=== PATIENT | male | born 1975 | race African-American/Black ===

== ENCOUNTER 2018-08-31 00:28 | Observation (INO) | payer MEDICAID ==
[~2018-08-31] VITALS: Ht 190.5 cm; Wt 97.4 kg
--- NOTE | ~2018-08-31 | MORECARE ---
CASE MANAGEMENT DISCHARGE SUMMARY PATIENT: DESTINEE HEDRICK UNIT: [id number] ADM DATE: 08/31/18 AGE: 43 : 75 SEX: M ROOM/BED: D.2108 AUTHOR: RONALD PEDRAZA PHYSICIAN: REFERRING PHYSICIAN: JOSE F YAO MD DATE OF SERVICE: 08/31/18 Discharge Plan Patient Name: DESTINEE HEDRICK [facility] : 1975 Planned Disposition: Home Anticipated Discharge Date: 08/31/18 Discharge Date: Expected LOS: 1 Initial Reviewer: [id number] Initial Review Date: 08/31/2018 Generated: 08/31/18 6:06 pm Patient Name: DESTINEE HEDRICK Page [phone] at 1706 All edits/amendments must be made on the electronic document DICTATION DATE: 08/31/181704 ELECTRIC METER INSTALLER: NOY 08/31/181704 RPT#: [id number] DC DATE: STATUS: ADM IN [facility] [address] [place] [address] END OF REPORT
--- NOTE | ~2018-08-31 | DS ---
PATIENT:DESTINEE HEDRICK :75 MEDICAL RECORD: [id number] DISCHARGE SUMMARY ADMISSION DATE: 08/31/18 DISCHARGE DATE: 08/31/18 DISCHARGE DIAGNOSIS: Musculoskeletal chest pain. HOSPITAL COURSE: Mr. Hedrick presents with very atypical pain from a cardiac standpoint worse with deep inspiration. 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 Due to the pleuritic nature of the pain, we did get CT angio, this was normal. Serial troponins were normal. EKG was normal. Telemetry was normal. Discharged home with Percocet p.r.n. No cardiac followup necessary. TRANSINT:[id number] Voice Confirmation ID: [id number] DOCUMENT ID: [id number] JOSE F YAO MD at 1925 CC: [id number] DICTATION DATE: 08/31/18 1355 ELECTRO PLATER: 08/31/182106 DIS IN 08/31/18 [address] [address] [place] [address]
[2018-08-31] MEDS ORDERED: PRINIVIL20 MG PO (00:33)
[2018-08-31] MEDS ORDERED: HYDROCHLOROTHIA25 MG PO (00:33)
[2018-08-31 00:54] LABS: BASOPHILS 0.1 % (0-2); EOSINOPHILS 0.2 % (0-7); HEMATOCRIT 42.9 % (42.0-54.0); HEMOGLOBIN 15.4 g/dL (13.5-17.5); IMMATURE GRANULOCYTES 0.2 % (0-5); LYMPHOCYTES 17.6 % (15-50); MCH 30.7 pg (26.0-34.0); MCHC 35.9 g/dL (31.0-37.0); MCV 85.5 fL (80.0-100.0); MEAN PLATELET VOLUME 10.3 fL (7.4-10.4); MONOCYTES 7.5 % (2-11); NEUTROPHILS 74.4 % (40-80); RBC 5.02 10x6/uL (4.20-6.10); RDW 14.4 % (11.5-14.5); WBC 10.9 10x3/uL (4.8-10.8)
[2018-08-31 00:55] LABS: PLATELET COUNT 226 10x3/uL (130-400)
[2018-08-31 01:06] LABS: INR 1.03 (0.85-1.17); PROTIME 13.2 SECONDS (11.6-15.0)
[2018-08-31 01:07] LABS: ALBUMIN 4.1 g/dL (3.4-5.0); ALKALINE PHOSPHATASE 89 U/L (46-116); ALT (SGPT) 19 U/L (10-68); BILIRUBIN - TOTAL 0.65 mg/dL (0.2-1.3); CALC OSMOLALITY 279 mosm/kg (275-300); CALCIUM 9.2 mg/dL (8.5-10.1); CARBON DIOXIDE 26.5 mmol/L (21.0-32.0); CHLORIDE - SERUM 102 mmol/L (98-107); CREATININE - SERUM 1.7 mg/dL (0.6-1.3); GLUCOSE 108 mg/dL (74-106); POTASSIUM - SERUM 3.6 mmol/L (3.5-5.1); PROTEIN - SERUM 8.5 g/dL (6.4-8.2); SODIUM 139 mmol/L (136-145); UREA NITROGEN 14 mg/dL (7-18); eGFR NON AFRICAN AMERICAN 47 mL/min (90-120)
[2018-08-31 01:08] LABS: D-DIMER-QUANTITATIVE 0.92 ug/mLFEU (0.20-0.54)
[2018-08-31 01:18] LABS: CKMB 7.2 U/L (0.0-3.6); CREATINE KINASE 766 UL (21-232); MAGNESIUM - SERUM 1.9 mg/dL (1.8-2.4); TROPONIN-I 0.017 ng/mL (0.000-0.060)
[2018-08-31 03:00] VITALS: BP 179/90; BMI 26.8
[2018-08-31 05:40] VITALS: BP 179/90
[2018-08-31 08:24] LABS: CKMB 5.8 U/L (0.0-3.6); CREATINE KINASE 717 UL (21-232); TROPONIN-I 0.019 ng/mL (0.000-0.060)
[2018-08-31 08:48] VITALS: Ht 190.5 cm; Wt 97.4 kg
[2018-08-31 09:01] VITALS: BP 149/85
[2018-08-31 11:50] LABS: UDS - AMPHET POSITIVE QUAL (NEGATIVE); UDS - BARB NEGATIVE QUAL (NEGATIVE); UDS - BENZO NEGATIVE QUAL (NEGATIVE); UDS - COCAINE NEGATIVE QUAL (NEGATIVE); UDS - OPIATE POSITIVE QUAL (NEGATIVE); UDS - PCP NEGATIVE QUAL (NEGATIVE); UDS - THC POSITIVE QUAL (NEGATIVE)
[2018-08-31 12:18] VITALS: BP 127/65
[2018-08-31 13:57] LABS: CKMB 5.1 U/L (0.0-3.6); CREATINE KINASE 682 UL (21-232); TROPONIN-I 0.017 ng/mL (0.000-0.060)
[2018-08-31] MEDS ORDERED: OXYCODONE-APAP1 TAB PO (14:42)
== END 2018-08-31 17:39 | disposition home or self-care (01) ==
LOC: D.ER 00:28 → D.EDHOLD 01:26 → D.M2 01:26 → OBSVTIME 01:26 → D.M2 01:34
PROVIDERS: Family Medicine; Internal Medicine Interventional Cardiology
DX: R07.89 Other chest pain (principal); I10 Essential (primary) hypertension; R00.0 Tachycardia, unspecified; Z87.891 Personal history of nicotine dependence

== ENCOUNTER 2019-04-24 20:02 | Emergency (ER) | payer MEDICAID ==
[~2019-04-24] VITALS: Ht 190.5 cm; Wt 90.9 kg
[~2019-04-24 20:02] MED LIST: HYDROCHLOROTHIA25 MG PO; OXYCODONE-APAP1 TAB PO; PRINIVIL20 MG PO
[2019-04-24 20:05] VITALS: Ht 190.5 cm; Wt 90.9 kg
[2019-04-24] MEDS ORDERED: ZOLOFT25 MG PO (20:06)
[2019-04-24] MEDS ORDERED: PEPCID40 MG PO (20:57)
[2019-04-24] MEDS ORDERED: PREDNISONE20 MG PO (20:57)
[2019-04-24] MEDS ORDERED: NORVASC10 MG PO (20:58)
[2019-04-24 22:18] VITALS: BP 162/103
== END 2019-04-24 22:19 | disposition home or self-care (01) ==
LOC: D.ER 20:02
DX: T78.3XXA Angioneurotic edema, initial encounter (principal); I10 Essential (primary) hypertension

== ENCOUNTER 2019-11-30 12:20 | Inpatient (IN) | payer OTHER ==
[2019-11-30] VITALS (8 sets, daily range): BP systolic 132–169; BP diastolic 80–112; BMI 27.5
[~2019-11-30] VITALS: Ht 190.5 cm; Wt 79.0 kg
--- NOTE | ~2019-11-30 | HEMODYNAMI ---
PATIENT:DESTINEE HEDRICK MEDICAL RECORD: [id number] : 75 [id number] ADMISSION DATE: 12/01/19 Generatedon:12/03/201915:55 Patient name: DESTINEE HEDRICK Patient #: [id number] SSN: [id number] : 1975 Date of study: 12/03/2019 Page: Of Hemodynamic Procedure Report Patient Data Patient Demographics Procedure consent was obtained First Name: DESTINEE Gender: Male Last Name: RYLEY : 1975 Middle Initial: D Age: 44 year(s) Patient #: [id number] Race: Black SSN: [id number] Additional ID: [id number] Contact details Address: [address] [place] [address] State: [place] City: [facility] Zip code: [address] Admission Admission Data Admission Date: 12/01/2019 Admission Time: 15:09 Arrival Date: 12/01/2019 Arrival Time: 15:09 Admit Source: Emergency Insurance Payor: Private department health insurance Room #: D.2119 [facility] #: [id number] Height (in.): 74.8 BSA: 2.28 (m2) Height (cm.): 190 BMI: 27.7 (kg/m2) Weight (lbs.): 220.46 Weight (kg.): 100 Lab Results Lab Result Date: 12/03/2019 Lab Result Time: 0:00 Biochemistry Name Units Result Min Max BUN mg/dl 21 --(----)-* 7 18 Creatinine mg/dl 1.7 --(----)-* 0.6 1.3 eGFR ml/min 61.43499 *-(----)-- 90 120 NONAFRICAN CBC Name Units Result Min Max Hemoglobin g/dl 13.9 --(*---)-- 13.5 17.5 Procedure Procedure Types Cath Procedure Diagnostic Procedure [facility] w/Coronaries Sedation Charges Moderate Sedation up to 15 minutes Procedure Description Procedure Date Procedure Date: 12/03/2019 Procedure Start Time: 15:37 Procedure End Time: 15:48 Procedure Staff Name Function Martha Tigre RT Monitor Audrey Edwards RN Nurse Eleuterio Ren MD Performing Physician Crystal Rico RT Scrub Procedure Data Cath Procedure Fluoroscopy Diagnostic fluoroscopy Total fluoroscopy Time: 2.1 time: 2.1 min min Diagnostic fluoroscopy Total fluoroscopy dose: 479 dose: 479 mGy mGy Contrast Material Contrast Material Type Amount (ml) Isovue 300 66 Entry Location Entry Primary Successful Side Size Upsize Upsize Entry Closure Succes sful Closure Location (Fr) 1 (Fr) 2 (Fr) Remarks Device Remarks Femoral Right 5 Fr Exoseal artery Estimated blood loss: 5 ml Diagnostic catheters Device Type Used For End Catheter Placement MULTIPACK JL 4.0 5Fr Left Coronary catheter Angiography MULTIPACK 3DRC 5Fr Right Coronary catheter Angiography MULTIPACK Pigtail 5 Fr LV Angiography catheter Procedure Complications No complications Procedure Medications Medication Administration Route Dosage Oxygen etCO2 Nasal cannula 2 l/min Lidocaine 2% added to field 20 Heparin Flush Bag added to field 2 bags (1000units/500ml NS) 0.9% NaCl I.V. 100 ml/hr Versed I.V. 2 mg Fentanyl I.V. 50 mcg Versed I.V. 2 mg Fentanyl I.V. 50 mcg Hemodynamics Rest BSA: 2.28 (m2) HGB: 13.9 (g/dl) O2 Consumption: Estimated: 272.58 (ml/min) O2 Co nsumption indexed: Estimated:119.55 (ml/min/m) Heart Rate: 66 (bpm) Pressure Samples Time Site Value (mmHg) Purpose Heart Use Rate(bpm) 15:45 LV 111/17,39 Snapshot 71 Gradients Valve Time Site Site Mean SEP/DFP Peak To Heart Use 1 2 (mmHg) (sec/min) Peak Rate (mmHg) (bpm) Aortic 15:45 LV AO 70 Snapshots Pre Cath Intra NCS Post Cath Vital Signs Time Heart Resp SPO2 etCO2 NIBP (mmHg) Rhythm Pain Sedation Rate (ipm) (%) (mmHg) Status Level (bpm) 15:24:06 57 18 100 30.9 146/86(110) NSR 0 (11) 10(A) , No pain 15:29:03 62 13 100 32.4 134/87(98) NSR 0 (11) 10(A) , No pain 15:33:15 61 12 98 28.6 132/79(95) NSR 0 (11) 10(A) , No pain 15:38:06 65 14 97 33.1 130/74(95) NSR 0 (11) 9(A) , No pain 15:42:16 67 12 96 36.9 121/74(98) NSR 0 (11) 9(A) , No pain 15:46:24 70 14 95 38.4 129/75(96) NSR 0 (11) 10(A) , No pain Medications Time Medication Route Dose Verified Delivered Reason Notes Eff ectiveness by by 15:30:10 Oxygen etCO2 2 Eleuterio Buffie used for Nasal l/min Mikal Edwards RN procedure cannula 15:30:18 Lidocaine 2% added 20ml Eleuterio Eleuterio for local to vial Mikal Ren MD anesthetic field 15:30:23 Heparin Flush added 2 Eleuterio Eleuterio used for Bag to bags Mikal Ren MD procedure (1000units/500ml field NS) 15:30:32 0.9% NaCl I.V. 100 Eleuterio Buffie Per ml/hr Mikal Edwards RN physician 15:32:46 Versed I.V. 2 mg Eleuterio Buffie for Mikal Edwards RN sedation 15:32:52 Fentanyl I.V. 50 Eleuterio Buffie for mcg Mikal Edwards RN sedation 15:39:34 Versed I.V. 2 mg Eleuterio Buffie for Mikal Edwards RN sedation 15:39:41 Fentanyl I.V. 50 Eleuterio Buffie for mcg Mikal Edwards RN sedation Procedure Log Time Note 15:09:39 Diagnostic Cath Status : Urgent 15:10:15 Informed consent obtained and on chart 15:14:07 Arrival Date: 12/01/2019 3:09:00 PM 15:14:51 Insurance Payor : Private health insurance 15:14:53 Admit Source: Emergency department 15:14:58 Patient Height : 74.8 inches 15:15:06 Patient Weight : 220.46 lbs 15:16:47 Lab Result : eGFR NONAFRICAN 61.49096 ml/min 15:16:47 Lab Result : Hemoglobin 13.9 g/dl 15:16:47 Lab Result : BUN 21 mg/dl 15:16:47 Lab Result : Creatinine 1.7 mg/dl 15:16:59 Procedure Status Urgent Heart Cath (IP). 15:17:12 Audrey Edwards RN sent for patient. Start room use. 15:17:13 Time tracking: Regular hours (M-F 7:00 - 5:00) 15:17:17 Plan of Care:Hemodynamics will remain stable., Cardiac rhythm will remain stable., Comfort level will be maintained., Respiratory function will remain adequate., Patient/ family verbilizes understanding of procedure., Procedure tolerated without complication., Recovers from procedure without complications.. 15:18:50 Warm blankets applied, and emely hugger turned on for patient comfort. 15:18:50 Patient received from Med II to CCL 2 Alert and oriented. Tansferred to table in Supine position. 15:18:51 Correct patient and procedure confirmed by team. 15:18:52 ECG and BP/O2 sat monitors applied to patient. 15:22:56 Vital chart was started 15:22:57 Baseline sample Acquired. 15:23:00 Rhythm: sinus rhythm 15:23:01 Full Disclosure recording started 15:23:04 H&P Date Dictated: 12/03/2019 Within 30 days and on chart., H&P Addendum completed by physician on day of procedure. (MUST COMPLETE FOR ALL OUTPATIENTS). 15:23:06 Pre-op teaching completed and patient verbalized understanding. 15:23:06 Pre-procedure instructions explained to patient. 15:23:11 Family in patients room. 15:23:20 Patient NPO since Midnight. 15:23:22 Is the patient allergic to Iodine/contrast media? No. 15:23:23 Was the patient premedicated? Yes 15:23:24 Is patient on blood thinner?No 15:23:25 Patient diabetic? No. 15:23:28 Previous problem with sedation/anesthesia? No ? 15:23:31 Snore? Yes 15:23:32 Sleep apnea? No 15:23:33 Deviated septum? No 15:23:34 Opens mouth fully? Yes 15:23:35 Sticks out tongue? Yes 15:23:37 Airway obstruction? No ? 15:23:39 Dentures? No ? 15:23:42 Pre procedure: right dorsailis pedis pulse 2+ Normal; easily identifiable; not easily obliterated 15:23:44 Pre procedure: left dorsailis pedis pulse 2+ Normal; easily identifiable; not easily obliterated 15:23:46 Patient pain scale 0/10 ?. 15:23:52 IV patent on arrival in right wrist with 0.9% NaCl at [facility]. 15::54 Lab results completed and on chart. 15:24:55 Stress Test: no; abnormal INFERIOR ;LATERAL 15:30:10 Oxygen 2 l/min etCO2 Nasal cannula was administered by Audrey Edwards RN; used for procedure; Verbal order read back and verified. 15:30:18 Lidocaine 2% 20ml vial added to field was administered by Eleuterio Ren MD; for local anesthetic; Verbal order read back and verified. 15:30:23 Heparin Flush Bag (1000units/500ml NS) 2 bags added to field was administered by Eleuterio Ren MD; used for procedure; Verbal order read back and verified. 15:30:32 0.9% NaCl 100 ml/hr I.V. was administered by Audrey Edwards RN; Per physician; Verbal order read back and verified. 15:31:40 Risk of Mortality: 0.2 15::44 Risk of blood transfusion: 0.3 15:31:47 Risk of ALDO: 3.9 15:31:52 Right groin area was prepped with chlora-prep and draped in sterile fashion 15::54 Sharps counted by scrub and verified by R.N. 15::54 Alarms reviewed by R. N. 15:31:55 Physician arrived 15::56 Final Timeout: patient, procedure, and site verified with staff and physician. All members of the team are in agreement. 15::56 --------ALL STOP TIME OUT------ 15:31:59 Right groin site verified by team. 15:32:06 Fire Safety Assessment: A--An alcohol-based skin anteseptic being used preoperatively., C--Open oxygen or nitrous oxide is being used., D--An ESU, laser, or fiber-optic light is being used. 15:32:09 Physical assessment completed. ASA score P 2 - A patient with mild systemic disease as per Eleuterio Ren MD. 15:32:32 2) 60-89 Mildly reduced kidney function, and other findings (as for stage 1) point to kidney disease. 15:32:36 Maximum allowable contrast dose (3.7 X eGFR X 0.75)169 ml. 15:32:46 Versed 2 mg I.V. was administered by Audrey Edwards RN; for sedation; Verbal order read back and verified. 15:32:52 Fentanyl 50 mcg I.V. was administered by Audrey Edwards RN; for sedation; Verbal order read back and verified. 15:33:00 Sedation plan: IV Moderate Sedation Medication:Versed, Fentanyl 15:33:05 Use device set Femoral Dx 15:33:06 Bag Decanter (2002S) opened to sterile field. 15:33:06 ACIST Syringe (98563) opened to sterile field. 15:33:07 Medline Cath Pack ([id number]) opened to sterile field. 15:33:09 ACIST Manifold (93567) opened to sterile field. 15:33:09 ACIST Hand Control (17298) opened to sterile field. 15:33:10 Tegaderm 4 x 4 (1626W) opened to sterile field. 15:33:10 DIAGNOSTIC Multipack 5Fr catheter set (UW4290) opened to sterile field. 15:33:12 SHEATH 5FR [place] (ZQG750) opened to sterile field. 15:33:13 EMERALD Guide Wire (048-564) opened to sterile field. 15:35:08 Zero performed for pressure channel P1 15:37:24 Procedure started. 15:37:52 Local anesthetic to right femoral artery with Lidocaine 2% by Eleuterio Ren MD.INITIAL ACCESS ONLY 15:38:02 A 5 Fr sheath was inserted into the Right Femoral artery 15:38:42 A MULTIPACK JL 4.0 5Fr catheter was advanced over the wire and used for Left Coronary Angiography. 15:39:34 Versed 2 mg I.V. was administered by Audrey Edwards RN; for sedation; Verbal order read back and verified. 15:39:41 Fentanyl 50 mcg I.V. was administered by Audrey Edwards RN; for sedation; Verbal order read back and verified. 15:40:44 LCA angiography performed. 15:40:47 Injector settings: Ml/sec: 3, Volume: 6, 15:41:14 Catheter removed. 15:41:27 A MULTIPACK 3DRC 5Fr catheter was advanced over the wire and used for Right Coronary Angiography. 15:42:06 RCA angiography performed. 15:42:09 Injector settings: Ml/sec: 3, Volume: 6, 15:43:43 Catheter removed. 15:43:52 A MULTIPACK Pigtail 5 Fr catheter was advanced over the wire and used for LV Angiography. 15:45:04 LV hemodynamics recorded. 15:45:13 LV gram done using [place] 15:45:16 Injector settings: Ml/sec: 5, Volume: 15, 15:45:36 EF : 30 % 15:46:07 Catheter removed. 15:46:10 EXOSEAL 5Fr (EX500) opened to sterile field. 15:46:27 Sheath removed intact; hemostasis achieved with Exoseal to the Right Femoral artery. 15:46:32 Procedure ended.(Physican Out) 15:47:09 Fluoroscopy time 02.10 minutes. 15:47:14 Fluoroscopy dose: 479 mGy 15:47:14 Flurop Dose total: 479 15:47:19 Dose Area Product 62528 mGy/cm. 15:47:22 Contrast amount:Isovue 300 66ml. 15:47:25 Maximum allowable dose exceeded? No. 15:47:26 Sharps counted by scrub and verified by R.N. 15:47:28 Insertion/operative site no bleeding no hematoma. 15:47:31 Post-op/insertion site Right Femoral artery dressed using a 4 x 4 and Tegaderm. 15:47:33 Post Procedure Pulses reassessed and unchanged 15:47:38 Post procedure rhythm: unchanged. 15:47:40 Estimated blood loss: 5 ml 15:47:43 Patient needs reinforcement of post procedure teaching. 15:47:43 Post procedure instruction explained to patient.Patient verbalizes understanding. 15:47:55 Procedure type changed to Cath procedure, Diagnostic procedure, LHC, C w/Coronaries, Sedation Charges, Moderate Sedation up to 15 minutes 15:47:56 Procedure and supply charges have been captured, reviewed, submitted and are correct. 15:48:01 Procedure Complication : No complications 15:48:04 Vital chart was stopped 15:48:05 [facility] Findings: mild to moderate CAD (<70%) 15:48:06 See physician's report for complete and final results. 15:48:06 Operative report dictated upon procedure completion. 15:48:08 Report given to Med II. 15:48:19 Patient transfered to Med II with Stretcher. 15:48:20 Full Disclosure recording stopped 15:48:20 Procedure ended. 15:48:27 End room use (Document Last) 15:49:35 End room use (Document Last) 15:50:20 End room use (Document Last) Device Usage Item Name Manufacture Quantity Catalog Hospital Part Current Minimal L ot# / Number Charge Number Stock Stock Serial# Code ACIST Acist 1 75864 [id number] [id number] 184770 20 Syringe Medical (53423) Systems Inc Bag Microtek 1 893072 46150 151979 5 Decanter Medical Inc. () Medline Medline 1 [id number] 287981 88438 843170 5 Cath Pack ([id number]) ACIST Hand Acist 1 94192 808554 456565 060238 5 Control Medical (11727) Systems Inc ACIST Acist 1 73400 716338 210018 714190 5 Manifold Medical (38994) Systems Inc DIAGNOSTIC Cardinal 1 HY1333 134645 55453 982710 30 Multipack Health 5Fr catheter set (EH2872) Tegaderm 4 3M 1 1626W 298155 830340 286755 5 x 4 (1626W) SHEATH 5FR Terumo 1 JGK913 359580 157293 989499 5 [place] (OHF900) EMERALD Cardinal 1 502-455 349857 764366 444296 5 Guide Wire [facility] (502455) MULTIPACK Cardinal 1 141426 5 JL 4.0 5Fr Health catheter MULTIPACK Cardinal 1 896825 5 3DRC 5Fr Health catheter MULTIPACK Cardinal 1 705313 5 Pigtail 5 Health Fr catheter EXOSEAL 5Fr Cardinal 1 EX500 845528 663997 996007 10 (EX500) Health Signature Audit [place] Stage Time Signature Unsigned Intra-Procedure 12/03/2019 Martha Landeros 3:49:35 PM RT(R) Intra-Procedure 12/03/2019 Audrey Edwards RN 3:50:20 PM Intra-Procedure 12/03/2019 Eleuterio Ren MD 3:55:35 PM Signatures Monitor : Martha Landeros RT Signature : Date : Time : Nurse : Buffie Edwards RN Signature : Date : Time : Performing Physician : Signature : Eleuterio Ren MD Date : Time : [address] [place] [address]
[~2019-11-30 12:20] MED LIST changes: +NORVASC10 MG PO; +PEPCID40 MG PO; +PREDNISONE20 MG PO; +ZOLOFT25 MG PO
[2019-11-30 13:41] LABS: BASOPHILS 0 % (0-2); EOSINOPHILS 2.5 % (0-7); HEMATOCRIT 37.6 % (42.0-54.0); HEMOGLOBIN 12.9 g/dL (13.5-17.5); IMMATURE GRANULOCYTES 0.3 % (0-5); LYMPHOCYTES 16.8 % (15-50); MCH 29.2 pg (26.0-34.0); MCHC 34.3 g/dL (31.0-37.0); MCV 85.1 fL (80.0-100.0); MEAN PLATELET VOLUME 9.2 fL (7.4-10.4); MONOCYTES 12.5 % (2-11); NEUTROPHILS 67.9 % (40-80); PLATELET COUNT 190 10x3/uL (130-400); RBC 4.42 10x6/uL (4.20-6.10); RDW 14.6 % (11.5-14.5)
[2019-11-30 13:49] LABS: CALC OSMOLALITY 271 mosm/kg (275-300); CALCIUM 8.9 mg/dL (8.5-10.1); CARBON DIOXIDE 25.7 mmol/L (21.0-32.0); CHLORIDE - SERUM 104 mmol/L (98-107); CREATININE - SERUM 1.5 mg/dL (0.6-1.3); GLUCOSE 83 mg/dL (74-106); POTASSIUM - SERUM 3.8 mmol/L (3.5-5.1); SODIUM 136 mmol/L (136-145); UREA NITROGEN 15 mg/dL (7-18); eGFR NON AFRICAN AMERICAN 54 mL/min (90-120)
[2019-11-30 13:55] LABS: APTT 28.7 SECONDS (22.8-39.4); INR 1.04 (0.85-1.17); PROTIME 13.5 SECONDS (11.6-15.0)
[2019-11-30 14:09] LABS: ALBUMIN 3.4 g/dL (3.4-5.0); ALKALINE PHOSPHATASE 88 U/L (30-120); ALT (SGPT) 29 U/L (10-68); BILIRUBIN - TOTAL 0.56 mg/dL (0.2-1.3); CKMB 4.3 U/L (0.0-3.6); CREATINE KINASE 886 UL (21-232); MAGNESIUM - SERUM 2.2 mg/dL (1.8-2.4); PROTEIN - SERUM 7.3 g/dL (6.4-8.2); TROPONIN-I < 0.017 ng/mL (0.000-0.060)
[2019-11-30] MEDS ORDERED: LISINOPRIL20 MG PO (15:10)
[2019-11-30] MEDS ORDERED: SMZ-TMP DS TABL1 TAB PO (15:10)
[2019-11-30] MEDS ORDERED: NORVASC5 MG PO (15:10)
--- NOTE | 2019-11-30 15:27 | NUR ---
CULTURE SWAB OF UMBILICUS DRAINAGE SENT TO LAB
--- NOTE | 2019-11-30 17:18 | NUR ---
RECEIVED PT TO ROOM 2118 VIA WHEELCHAIR. PT A/O X4, RESP EVEN AND NONLAOBORED ON RA. LT AC IV SL. ORIENTED PT TO ROOM AND CALL LIGHT, WILL ASSESS PT AND START PLAN OF CARE.
[2019-11-30 19:40] LABS: CKMB 3.1 U/L (0.0-3.6); CREATINE KINASE 746 UL (21-232); TROPONIN-I < 0.017 ng/mL (0.000-0.060)
--- NOTE | 2019-11-30 20:06 | NUR ---
INITIAL ROUNDS COMPLETED AT 1915 HRS. PT RESTING WITH EYES CLOSED. RESP EVEN AND REGULAR. ASSESSMENT COMPLETED AT 1954HRS. SR PER CM HR 77. ALERT AND ORIENTED TO PERSON,PLACE AND TIME. BLANCO. IV TO LAC SL. LUNGS ESENTIALLY CTA. SWELLING NOTED TO UMBILICUS AREA WITH YELLOW EXUDATE NOTED TO CENTER OF UMBILICUS. DENIES NAY DISCOMFORT. NON-SLID SOCKS PLACED ON PT'S FEET AT THAT TIME. SR UP X1, CALL LIGHT WITHIN REACH.
--- NOTE | 2019-11-30 21:39 | NUR ---
TYLENOL 650MG PO GIVEN FOR C/O GENERALIZED DISCOMFORT.
--- NOTE | 2019-11-30 23:55 | NUR ---
PT RESTING WITH EYES CLOSED. RESP EVEN AND REGULAR. SR UP X2, CALL LIGHT WITHIN REACH.
[2019-12-01] VITALS: BP 139/80
--- NOTE | 2019-12-01 01:47 | NUR ---
[facility] PAGED REGARDING PT'S S/O BACK AND ABD PAIN THAT TYLENOL SOESN'T TOUCH.
--- NOTE | 2019-12-01 02:05 | NUR ---
Shala SILVA APN RETURNS PAGE. INFORMED OF PT'S DIAGNOSIS, C/O BACKA ND ABD PAIN AND TAHT TYLENOL WAS NOT CONTROLLING PAIN. DILAUDID 0.5MG IV Q6HRS ORDERS. DILAUDID 0.5MG SIVO GIVEN TO LAC FOR C/O BACK PAIN 06/25. PT INFORMED HE MAY HAVE IT EVERY 6 HRS. STATED UNDERSTANDING. SR UP X2, CALL LIGHT WITHIN REACH.
[2019-12-01 02:15] LABS: CKMB 1.6 U/L (0.0-3.6); CREATINE KINASE 645 UL (21-232); TROPONIN-I < 0.017 ng/mL (0.000-0.060)
--- NOTE | 2019-12-01 03:48 | NUR ---
PT STATES DILAUDID HELPED CONTROL HIS PAIN. SR UP X2, CALL LIGHT WITHIN REACH.
[2019-12-01 04:00] VITALS: BP 158/94
--- NOTE | 2019-12-01 04:34 | NUR ---
PT RESTING WITH EYES CLOSED. RESP EVEN AND REGULAR. SR UP X2, CALL LIGHT WITHIN REACH.
--- NOTE | 2019-12-01 06:40 | NUR ---
VSS THROUGHOUT NIGHT. SR PER CM. PT STATES DILAUDID HELPING PAIN. NEEDS MET; WILL CONTINUE TO MONITOR.
[2019-12-01 08:03] VITALS: BP 143/98
--- NOTE | 2019-12-01 10:07 | NUR ---
SPOKE TO CESAR ABOUT INCREASING PAIN MED. IV RESTARTED TO LEFT FA WITH 20 GAUGE CATH X 1 STICK AND FLUSHED WITH NS. LINE IS PATENT.
[2019-12-01 12:22] VITALS: BP 118/63
--- NOTE | 2019-12-01 14:51 | NUR ---
ECHO COMPLETED AT BS.
[2019-12-01 15:55] VITALS: BP 133/79
[2019-12-01 16:10] LABS: BASOPHILS 0 % (0-2); HEMATOCRIT 37.8 % (42.0-54.0); HEMOGLOBIN 13.3 g/dL (13.5-17.5); LYMPHOCYTES 15.6 % (15-50); MCH 29.3 pg (26.0-34.0); MCHC 35.2 g/dL (31.0-37.0); MCV 83.3 fL (80.0-100.0); MEAN PLATELET VOLUME 9.4 fL (7.4-10.4); NEUTROPHILS 68.4 % (40-80); PLATELET COUNT 175 10x3/uL (130-400); RBC 4.54 10x6/uL (4.20-6.10); RDW 14.5 % (11.5-14.5)
[2019-12-01 16:33] LABS: ANION GAP 7.8 mmol/L (8-16); CALCIUM 8.3 mg/dL (8.5-10.1); CARBON DIOXIDE 30.5 mmol/L (21.0-32.0); CREATININE - SERUM 1.8 mg/dL (0.6-1.3); MAGNESIUM - SERUM 2.1 mg/dL (1.8-2.4); POTASSIUM - SERUM 4.3 mmol/L (3.5-5.1)
[2019-12-01 17:49] LABS: UDS - AMPHET POSITIVE QUAL (NEGATIVE); UDS - BARB NEGATIVE QUAL (NEGATIVE); UDS - BENZO NEGATIVE QUAL (NEGATIVE); UDS - COCAINE NEGATIVE QUAL (NEGATIVE); UDS - OPIATE POSITIVE QUAL (NEGATIVE); UDS - PCP NEGATIVE QUAL (NEGATIVE); UDS - THC POSITIVE QUAL (NEGATIVE)
[2019-12-01 17:58] LABS: APPEARANCE CLEAR (CLEAR); BILIRUBIN NEGATIVE (NEGATIVE); COLOR YELLOW (YELLOW); GLUCOSE NEGATIVE (NEGATIVE); KETONE NEGATIVE (NEGATIVE); NITRITE NEGATIVE (NEGATIVE); PROTEIN NEGATIVE (NEGATIVE); SPECIFIC GRAVITY 1.015 (1.005-1.020); UROBILINOGEN NORMAL (NORMAL)
[2019-12-01 20:00] VITALS: BP 128/66
--- NOTE | 2019-12-01 20:25 | NUR ---
INTIAL ROUNDS COMPETED AT 1914 HRS. PT RESTING WITH EYES CLOSED. RESP EVEN AND REGULAR. ASSESSEMNT COMPLETED AT HRS. VSS. SR PER CM HR 79. ALERT AND ORIENTED TO PERSON, PLACE AND TIME. BLANCO. IV TO LFA SL. SWELLING NOTED AROUND UMBILICUS. PT STATES HE HAS A PRESSURE INCHEST. NITRO 0.4MG SL GIVEN AT 193 HRS. REEVALED AT 1954 HRS AND PT STATED PRESSURE DECREASED BUT STILL HAS PAIN 9/10 TO BACK. DILAUDID 0.5MG SIVP GIVEN AT 2008 HRS. SR UP X2, CALL LIGHT WITHIN REACH. DISCUSSED CARDIOLYTE STRESS TEST. DISCUSSED HOW AMPHETAMINES CAN DAMAGE HIS HEART. PT STATED UNDERSTANDING.
--- NOTE | 2019-12-01 21:42 | NUR ---
PT STATES PAIN NOW 01/23. IVAB INITIATED TO LFA. CALL LIGHT WITHIN REACH.
--- NOTE | 2019-12-01 22:59 | NUR ---
PT UP TO BR. NO DISTRESS NOTED.
[2019-12-02] VITALS: BP 113/71
--- NOTE | 2019-12-02 00:46 | NUR ---
PT RESTING WITH EYES CLOSED ON R SIDE. RESP DEEP, EVEN AND REGULAR. SR UP X1,CALL LIGHT WITHIN REACH.
--- NOTE | 2019-12-02 02:05 | NUR ---
PT HAS C/O SEVERE CHEST, BACK AND ABD PAIN 10/10. CHEST TENDER TO TOUCH. BP 127/75. HR 82 SR. NITOR 0.4MG SL GIVEN. DILAUDID 0.5MG SIVP GIVEN. WILL CONTINUE TO MONITOR.
[2019-12-02 04:00] VITALS: BP 120/68
--- NOTE | 2019-12-02 04:26 | NUR ---
VSS. SR PER CM HR 80. PT RESTING WITH EYES CLOSED. RESP EVEN AND REGULAR. SR UP X2, CALL LIGHT WITHIN REACH.
--- NOTE | 2019-12-02 06:15 | NUR ---
VSS THROUGHOUT NGIHT. DILAUDID SIVP DIMINISHED HIS PAIN. PT CURRENTLY RESTING WITH EYES CLOSED. RESP EVEN AND REGULAR. NPO FOR AM CARDIOLYTE STRESS TEST. NEEDS MET; WILL CONTINUE TO MONITOR.
[2019-12-02 06:51] LABS: HEMATOCRIT 38.9 % (42.0-54.0); HEMOGLOBIN 13.5 g/dL (13.5-17.5); MCH 28.8 pg (26.0-34.0); MCHC 34.7 g/dL (31.0-37.0); MCV 83.1 fL (80.0-100.0); MEAN PLATELET VOLUME 9.4 fL (7.4-10.4); PLATELET COUNT 173 10x3/uL (130-400); RBC 4.68 10x6/uL (4.20-6.10); RDW 14.7 % (11.5-14.5); WBC 2.5 10x3/uL (4.8-10.8)
[2019-12-02 07:10] LABS: ANION GAP 11.5 mmol/L (8-16); CALCIUM 8.1 mg/dL (8.5-10.1); CARBON DIOXIDE 25.8 mmol/L (21.0-32.0); CREATININE - SERUM 1.7 mg/dL (0.6-1.3); MAGNESIUM - SERUM 2.1 mg/dL (1.8-2.4); POTASSIUM - SERUM 4.3 mmol/L (3.5-5.1)
[2019-12-02 08:07] VITALS: BP 125/71
--- NOTE | 2019-12-02 08:50 | NUR ---
LEFT FOR STRESS TEST VIA WHEELCHAIR.
[2019-12-02 09:08] LABS: CRENATED CELLS OCC; LYMPHOCYTES 25 % (15-50); MONOCYTES 8 % (2-11); NEUTROPHILS 62 % (40-80); PLATELET ESTIMATE NORMAL; ROULEAUX OCC
[2019-12-02 13:53] LABS: CHOL - HDL RATIO 2.2 ratio (2.3-4.9); LDL-HDL RATIO 1.1 ratio (1.5-3.5)
--- NOTE | 2019-12-02 15:05 | NUR ---
ALERT AND ORIENTED X4. SHOWER AND LINEN CHANGE COMPLETE. CONSENTS FOR DIRECTOR TRAFFIC AND PLANNING SIGNED ON CHART. DENIES ANY NEEDS AT THIS TIME. CONTINUE PLAN OF CARE AND SAFETY PRECAUTIONS.
[2019-12-02 16:13] VITALS: BP 125/76
--- NOTE | 2019-12-02 19:42 | NUR ---
RECEIVED BEDSIDE REPORT. PATIENT IS ALERT AND ORIENTED, RESTING COMFORTABLY IN BED. PATIENT ROOM SMELT LIKE CIGARETTE SMOKE. SISTER AT BEDSIDE. RESPIRATIONS ARE EVEN AND UNLABORED. NO S/S OF DISTRESS. NO C/O PAIN. CALL LIGHT WITHIN REACH. WILL CPOC.
[2019-12-02 20:00] VITALS: BP 121/81
[2019-12-03] VITALS: BP 134/73
--- NOTE | 2019-12-03 00:18 | NUR ---
PATIENT RESTING COMFORTABLY IN BED. RESPIRATIONS ARE EVEN AND UNLABORED. NO S/S OF DISTRESS. NO C/O PAIN CALL LIGHT WITHIN REACH. WILL CPOC.
[2019-12-03 04:00] VITALS: BP 120/81
--- NOTE | 2019-12-03 04:03 | NUR ---
PATIET IV INFILTRATED. NEW IV OBTAINED IN RIGHT FOREARM.
[2019-12-03 06:53] LABS: HEMOGLOBIN 13.9 g/dL (13.5-17.5); MCH 28.6 pg (26.0-34.0); MCHC 34.8 g/dL (31.0-37.0); MCV 82.3 fL (80.0-100.0); MEAN PLATELET VOLUME 9.4 fL (7.4-10.4); PLATELET COUNT 161 10x3/uL (130-400); RBC 4.86 10x6/uL (4.20-6.10); RDW 14.3 % (11.5-14.5)
[2019-12-03 07:01] LABS: ANION GAP 10.7 mmol/L (8-16); CALCIUM 8.2 mg/dL (8.5-10.1); CARBON DIOXIDE 26.7 mmol/L (21.0-32.0); CREATININE - SERUM 1.6 mg/dL (0.6-1.3); MAGNESIUM - SERUM 2.3 mg/dL (1.8-2.4); POTASSIUM - SERUM 4.4 mmol/L (3.5-5.1)
--- NOTE | 2019-12-03 07:20 | NUR ---
RECIEVE REPORT. LAYING IN BED. REPORTS PAIN 06/25. CONTINUE PAIN MANAGEMENT. WAITING TO GO TO BANKING ANALYST. CONTINUE PLAN OF CARE AND SAFETY PRECAUTIONS.
[2019-12-03 09:08] VITALS: BP 132/75
[2019-12-03 09:15] LABS: EOSINOPHILS 6 % (0-7); LYMPHOCYTES 45 % (15-50); MONOCYTES 15 % (2-11); NEUTROPHILS 31 % (40-80); PLATELET ESTIMATE NORMAL
[2019-12-03 09:16] LABS: ANISOCYTOSIS OCC
[2019-12-03 12:44] VITALS: BP 118/76
[2019-12-03 16:00] VITALS: BP 116/80
--- NOTE | 2019-12-03 16:14 | NUR ---
ARRIVE TO ROOM VIA BED FROM BACK OFFICE MEDICAL ASSISTANT. SEDATED. AROUSES TO STIMULI. PULSE PALPABLE BILATERALLY. BP-112/69, HR-59 SINUS ENIO, O2-95% RA. NO SIGNS OF DISTRESS. RT GROIN DRESSING CLEAN DRY INTACT. FREE FROM HEMATOMA. FREE FROM BLEEDING. CONTINUE PLAN OF CARE AND SAFETY PRECAUTIONS.
--- NOTE | 2019-12-03 19:36 | NUR ---
RECEIVED BEDSIDE REPORT. PATIENT IS RESTING COMFORTABLY IN BED. RESPIRATIONS ARE EVEN AND UNLABORED. NO S/S OF DISTRESS. NO C/O PAIN. CALL LIGHT WITHIN REACH. NEEDS MET. WILL CPOC.
[2019-12-03 20:00] VITALS: BP 111/59
[2019-12-04] VITALS: BP 100/52
--- NOTE | 2019-12-04 00:26 | NUR ---
PATIENT RESTING COMFORTABLY IN BED. RESPIRATIONS ARE EVEN AND UNLABORED. NO S/S OF DISTRESS. NO C/O PAIN. CALL LIGHT WITHIN REACH. WILL CPOC.
[2019-12-04 04:00] VITALS: BP 103/55
[2019-12-04 07:14] LABS: BASOPHILS 0.5 % (0-2); EOSINOPHILS 4.2 % (0-7); HEMATOCRIT 39.5 % (42.0-54.0); HEMOGLOBIN 13.6 g/dL (13.5-17.5); LYMPHOCYTES 31.6 % (15-50); MCH 28.9 pg (26.0-34.0); MCHC 34.4 g/dL (31.0-37.0); MCV 83.9 fL (80.0-100.0); MEAN PLATELET VOLUME 9.6 fL (7.4-10.4); MONOCYTES 4.2 % (2-11); NEUTROPHILS 59.5 % (40-80); PLATELET COUNT 165 10x3/uL (130-400); RBC 4.71 10x6/uL (4.20-6.10); RDW 14.7 % (11.5-14.5); WBC 2.2 10x3/uL (4.8-10.8)
[2019-12-04 07:29] LABS: ANION GAP 12.4 mmol/L (8-16); CALCIUM 8.2 mg/dL (8.5-10.1); CREATININE - SERUM 1.5 mg/dL (0.6-1.3); MAGNESIUM - SERUM 2.2 mg/dL (1.8-2.4); POTASSIUM - SERUM 4.4 mmol/L (3.5-5.1)
[2019-12-04 09:17] VITALS: BP 114/68
[2019-12-04 14:14] VITALS: BP 138/78
[2019-12-04 17:01] VITALS: BP 118/62
[2019-12-04 20:00] VITALS: BP 132/75
--- NOTE | 2019-12-04 20:31 | NUR ---
RECEIVED BEDSIDE REPORT. PATIENT IS RESTING COMFORTABLY IN BED. RESPIRATIONS ARE EVEN AND UNLABORED. NO S/S OF DISTRESS. NO C/O PAIN. CALL LIGHT WITHIN REACH. WILL CPOC.
[2019-12-05] VITALS: BP 121/70
[2019-12-05 04:00] VITALS: BP 125/70
[2019-12-05 06:37] LABS: BASOPHILS 0.2 % (0-2); EOSINOPHILS 0.6 % (0-7); HEMATOCRIT 39.6 % (42.0-54.0); HEMOGLOBIN 13.6 g/dL (13.5-17.5); IMMATURE GRANULOCYTES 0.6 % (0-5); LYMPHOCYTES 9.1 % (15-50); MCH 28.6 pg (26.0-34.0); MCHC 34.3 g/dL (31.0-37.0); MCV 83.4 fL (80.0-100.0); MEAN PLATELET VOLUME 9.5 fL (7.4-10.4); NEUTROPHILS 86.5 % (40-80); PLATELET COUNT 156 10x3/uL (130-400); RBC 4.75 10x6/uL (4.20-6.10); RDW 14.6 % (11.5-14.5); WBC 13.9 10x3/uL (4.8-10.8)
[2019-12-05 07:00] LABS: ANION GAP 13.1 mmol/L (8-16); CALCIUM 8.3 mg/dL (8.5-10.1); CARBON DIOXIDE 24.2 mmol/L (21.0-32.0); CREATININE - SERUM 1.4 mg/dL (0.6-1.3); POTASSIUM - SERUM 4.3 mmol/L (3.5-5.1)
[2019-12-05 09:57] VITALS: BP 130/79
[2019-12-05 10:10] LABS: HEPATITIS C ANTIBODY <0.1 S/CO RAT (0.0-0.9)
[2019-12-05 12:47] VITALS: BP 100/61
--- NOTE | 2019-12-05 14:01 | NUR ---
RESTS IN BED WITH EYES CLOSED. NO S/S PAIN NOTED.
[2019-12-05 16:00] VITALS: BP 126/83
--- NOTE | 2019-12-05 19:27 | NUR ---
RECEIVED BEDSIDE REPORT. PATIENT IS ALERT AND ORIENTED, RESTING COMFORTABLY IN BED. RESPIRATIONS ARE EVEN AND UNLABORED. NO S/S OF DISTRESS. NO C/O PAIN. NEEDS MET. CALL LIGHT WITHIN REACH. WILL CPOC.
[2019-12-05 21:00] VITALS: BP 128/78
--- NOTE | 2019-12-06 00:07 | NUR ---
PATIENT RESTING COMFORTABLY IN BED. RESPIRATIONS ARE EVEN AND UNLABORED. NO S/S OF DISTRESS. CALLLIGHT WITHIN REACH. WILL CPOC.
[2019-12-06 01:18] VITALS: BP 101/66
[2019-12-06 04:42] VITALS: BP 112/72
--- NOTE | 2019-12-06 04:58 | NUR ---
ZAC MARSHALL INFORMED RN THAT PATIENT WANTS THE NUMBER TO THE ROOM SERVICE CLERK WAS I GAVE HER. ZAC MARSHALL EXPLAINED THAT PATIENT WANTED THE NUMBER SO THAT HE COULD CALL ROOM SERVICE CLERK BECAUSE I WAS NOT GIVING HIM IS MEDICATIONS. PATIENT HAS BEEN SLEEPING SINCE I HAD HUNG HIS ANTIBIOTIC. I WENT TO ROOM IMMEDIATELY AFTER CONVERSATION WITH ZAC MARSHALL. PATIENT HAD HIS HEAD COVERED WITH HIS BLANKET. ASKED PATIENT WHAT MEDICATION HE WANTED. HE STATED HIS PAIN MEDICATION. PATIENT GIVEN HIS DILAUDID, PROTONIX AND HIS ANTIBIOTIC. EXPLAINED TO PATIENT THAT HIS PAIN MEDICATION WAS PRN AND THAT HE NEEDED TO ASKE FOR IT. PATIENT IGNORED ME, ROLLED OVER AND STATED "WELL I NEEDED SOMETHING TO SLEEP!" NOTIFIED ROOM SERVICE CLERK THAT THE PATIENT WAS REQUESTING TO SPEAK WITH HER.
[2019-12-06 05:15] LABS: BASOPHILS 0.4 % (0-2); EOSINOPHILS 1.1 % (0-7); HEMATOCRIT 41.1 % (42.0-54.0); HEMOGLOBIN 14.1 g/dL (13.5-17.5); IMMATURE GRANULOCYTES 0.4 % (0-5); LYMPHOCYTES 16.6 % (15-50); MCH 28.9 pg (26.0-34.0); MCHC 34.3 g/dL (31.0-37.0); MCV 84.2 fL (80.0-100.0); MEAN PLATELET VOLUME 9.7 fL (7.4-10.4); MONOCYTES 4.3 % (2-11); NEUTROPHILS 77.2 % (40-80); PLATELET COUNT 169 10x3/uL (130-400); RBC 4.88 10x6/uL (4.20-6.10); RDW 14.8 % (11.5-14.5); WBC 15.8 10x3/uL (4.8-10.8)
[2019-12-06 05:43] LABS: ANION GAP 10.3 mmol/L (8-16); CALCIUM 8.5 mg/dL (8.5-10.1); CARBON DIOXIDE 29.2 mmol/L (21.0-32.0); CREATININE - SERUM 1.6 mg/dL (0.6-1.3); MAGNESIUM - SERUM 2.2 mg/dL (1.8-2.4); POTASSIUM - SERUM 4.5 mmol/L (3.5-5.1)
[2019-12-06 08:00] VITALS: BP 105/62
[2019-12-06 12:00] VITALS: BP 102/56
[2019-12-06 14:10] VITALS: Ht 190.5 cm; Wt 79.0 kg
[2019-12-06 16:00] VITALS: BP 97/54
--- NOTE | 2019-12-06 19:11 | NUR ---
RECEIVED UP IN BED WITH EYES OPEN AND TV ON. ALERT AND ORIENTED X4. UP AD ONEAL. IV TO RT FA SL. TELEMETRY IN PLACE. DENIES ANY PAIN OR NEEDS. RECEIVED BEDSIDE SHIFT REPORT. NO REDNESS OR SWELLING TO ABD.
[2019-12-06 20:30] VITALS: BP 128/71
[2019-12-07 00:30] VITALS: BP 115/66
[2019-12-07 04:30] VITALS: BP 106/64
[2019-12-07 05:13] LABS: BASOPHILS 0.5 % (0-2); EOSINOPHILS 1.2 % (0-7); HEMATOCRIT 41.1 % (42.0-54.0); HEMOGLOBIN 13.9 g/dL (13.5-17.5); IMMATURE GRANULOCYTES 0.6 % (0-5); LYMPHOCYTES 31.8 % (15-50); MCH 28.4 pg (26.0-34.0); MCHC 33.8 g/dL (31.0-37.0); MEAN PLATELET VOLUME 9.6 fL (7.4-10.4); MONOCYTES 7.4 % (2-11); NEUTROPHILS 58.5 % (40-80); PLATELET COUNT 177 10x3/uL (130-400); RBC 4.89 10x6/uL (4.20-6.10); RDW 14.6 % (11.5-14.5)
[2019-12-07 05:15] LABS: WBC 11.3 10x3/uL (4.8-10.8)
[2019-12-07 05:23] LABS: ANION GAP 5.8 mmol/L (8-16); CALCIUM 8.4 mg/dL (8.5-10.1); CARBON DIOXIDE 31.5 mmol/L (21.0-32.0); CREATININE - SERUM 1.5 mg/dL (0.6-1.3); MAGNESIUM - SERUM 2.3 mg/dL (1.8-2.4); POTASSIUM - SERUM 4.3 mmol/L (3.5-5.1)
[2019-12-07 08:00] VITALS: BP 103/61
--- NOTE | 2019-12-07 10:26 | MORECARE ---
CASE MANAGEMENT DISCHARGE SUMMARY PATIENT: DESTINEE HEDRICK UNIT: [id number] ADM DATE: 12/01/19 AGE: 44 : 75 SEX: M ROOM/BED: D.2119 AUTHOR: RONALD PEDRAZA PHYSICIAN: REFERRING PHYSICIAN: RAMIN JUNIOR MD DATE OF SERVICE: 12/07/19 Discharge Plan Patient Name: DESTINEE HEDRICK Facility: [facility]:[place] : 1975 Planned Disposition: Home Anticipated Discharge Date: Discharge Date: Expected LOS: Initial Reviewer: [email or web address] Initial Review Date: 12/07/2019 Generated: 12/07/19 11:26 am Comments DCP- Discharge Planning Updated by [email or web address]: Jyoti William on 12/07/19 9:[address] Patient Name: DESTINEE HEDRICK Admission Status: ER Accout number: [id number] Admission Date: 12-01-2019 : 1975 Admission Diagnosis: Attending: RAMNI JUNIOR Current LOS: 6 Anticipated DC Date: Planned Disposition: Home Primary Insurance: [employer] MEDICAID Discharge Planning Comments: CM MET WITH PATIENT TO DISCUSS DC PLANNING/NEEDS AFTER OBTAINING VERBAL CONSENT. PLANS TO DC TO HOME. DENIES NEEDS FOR EQUIPMENT, HOME HEALTH OR REHAB. CM TO FOLLOW AND ASSIST NEEDED. Garage Supervisor: Jyoti William DCPIA - Discharge Planning Initial Assessment Updated by [email or web address]: Jyoti William on 12/07/19 10:22 am * Is the patient Alert and Oriented? Yes * PCP [facility] * Preadmission Environment Home Alone * ADLs Independent * Additional services required to return to the preadmission environment? No * Can the patient safely return to the preadmission environment? Yes * Has this patient been hospitalized within the prior 30 days at any hospital? No Patient Name: DESTINEE HEDRICK Page [id number] at 1026 All edits/amendments must be made on the electronic document DICTATION DATE: 12/07/19 1026 RUBBER BELT SPLICER: NOY 12/07/19 1026 RPT#: [id number] DC DATE: STATUS: ADM IN [place] [id number] [place] [address] END OF REPORT
[2019-12-07] MEDS ORDERED: LISINOPRIL20 MG PO (14:24)
[2019-12-07] MEDS ORDERED: NORVASC5 MG PO (14:24)
--- NOTE | 2019-12-07 16:09 | NUR ---
IV AND TELEMETRY DCD. DC PLANS GIVEN. UNDERSTANDING VOICED.
--- NOTE | 2019-12-08 11:42 | MORECARE ---
CASE MANAGEMENT DISCHARGE SUMMARY PATIENT: DESTINEE HEDRICK UNIT: [id number] ADM DATE: 12/01/19 AGE: 44 : 75 SEX: M ROOM/BED: D.2119 AUTHOR: RONALD PEDRAZA PHYSICIAN: REFERRING PHYSICIAN: RAMIN JUNIOR MD DATE OF SERVICE: 12/08/19 Discharge Plan Patient Name: DESTINEE HEDRICK Facility: [facility]:[place] : 1975 Planned Disposition: Home Anticipated Discharge Date: Discharge Date: 12/07/2019 Expected LOS: Initial Reviewer: [id number] Initial Review Date: 12/07/2019 Generated: 12/08/19 12:42 pm Comments DCP- Discharge Planning Updated by [email or web address]: Jyoti William on 12/07/19 9:[address] Patient Name: DESTINEE HEDRICK Admission Status: ER Accout number: [id number] Admission Date: 12-01-2019 : 1975 Admission Diagnosis: Attending: RAMIN JUNIOR Current LOS: 6 Anticipated DC Date: Planned Disposition: Home Primary Insurance: [employer] MEDICAID Discharge Planning Comments: CM MET WITH PATIENT TO DISCUSS DC PLANNING/NEEDS AFTER OBTAINING VERBAL CONSENT. PLANS TO DC TO HOME. DENIES NEEDS FOR EQUIPMENT, HOME HEALTH OR REHAB. CM TO FOLLOW AND ASSIST NEEDED. Truck Shop Supervisor: Jyoti William DCPIA - Discharge Planning Initial Assessment Updated by [email or web address]: Jyoti William on 12/07/19 10:22 am * Is the patient Alert and Oriented? Yes * PCP [facility] * Preadmission Environment Home Alone * ADLs Independent * Additional services required to return to the preadmission environment? No * Can the patient safely return to the preadmission environment? Yes * Has this patient been hospitalized within the prior 30 days at any hospital? No Last DP export: 12/07/19 9:26 a Patient Name: DESTINEE HEDRICK Page [id number] at 1142 All edits/amendments must be made on the electronic document DICTATION DATE: 12/08/19 1142 CRAFT DEMONSTRATOR: NOY 12/08/19 1142 RPT#: [id number] DC DATE:12/07/19 STATUS: DIS IN [facility] [address] [facility] [address] END OF REPORT
== END 2019-12-07 16:10 | disposition home or self-care (01) | DRG 287 ==
LOC: D.ER 12:20 → D.M2 15:37 → OBSVTIME 16:16 → D.M2 12-01 15:09
PROVIDERS: Emergency Medicine; Family Medicine; Internal Medicine Cardiovascular Disease; Internal Medicine Hematology & Oncology; ADMIT Internal Medicine Nephrology; ATTEND Internal Medicine Nephrology
PROC: B2151ZZ Fluoroscopy of Left Heart using Low Osmolar Contrast (ICD-10-PCS; 2019-12-03)
PROC: 4A023N7 Measurement of Cardiac Sampling and Pressure, Left Heart, Percutaneous Approach (ICD-10-PCS; 2019-12-03)
PROC: B2111ZZ Fluoroscopy of Multiple Coronary Arteries using Low Osmolar Contrast (ICD-10-PCS; principal; 2019-12-03 15:17)
DX: I42.9 Cardiomyopathy, unspecified (principal); L03.311 Cellulitis of abdominal wall; N17.9 Acute kidney failure, unspecified; F17.213 Nicotine dependence, cigarettes, with withdrawal; I10 Essential (primary) hypertension; D64.9 Anemia, unspecified; F15.90 Other stimulant use, unspecified, uncomplicated; F12.90 Cannabis use, unspecified, uncomplicated; D70.9 Neutropenia, unspecified; B95.3 Streptococcus pneumoniae as the cause of diseases classified elsewhere; Z91.19 Patient's noncompliance with other medical treatment and regimen

== ENCOUNTER 2020-03-06 02:44 | Emergency (ER) | payer OTHER ==
[~2020-03-06] VITALS: Ht 190.5 cm; Wt 97.7 kg
[~2020-03-06 02:44] MED LIST changes: +LISINOPRIL20 MG PO; +NORVASC5 MG PO; +SMZ-TMP DS TABL1 TAB PO
[2020-03-06 02:55] VITALS: Ht 190.5 cm; Wt 97.7 kg
[2020-03-06] MEDS ORDERED: ACETAMINOPHEN500 M1 PO (03:12)
[2020-03-06] MEDS ORDERED: IBUPROFEN800 MG PO (03:12)
[2020-03-06] MEDS ORDERED: KEFLEX500 MG PO (03:12)
[2020-03-06 03:22] VITALS: BP 169/90
== END 2020-03-06 03:22 | disposition home or self-care (01) ==
LOC: D.ER 02:44
DX: S90.822A Blister (nonthermal), left foot, initial encounter (principal); S90.821A Blister (nonthermal), right foot, initial encounter; I10 Essential (primary) hypertension; X58.XXXA Exposure to other specified factors, initial encounter